=== PATIENT | female | born 1990 | race Caucasian/White ===

== ENCOUNTER 2021-05-29 11:00 | Outpatient (CLI) | payer BC ==
[2021-05-29 14:43] VITALS: BMI 34.1
== END 2021-05-29 11:01 | disposition home or self-care (01) ==
LOC: PET 11:00
PROVIDERS: ATTEND Internal Medicine Hematology & Oncology
DX: C83.83 Other non-follicular lymphoma, intra-abdominal lymph nodes (principal)
CPT/HCPCS: 78815; 80053; 82248; 83615; 84100; 84550; A9552

== ENCOUNTER → 2021-06-01 | Day surgery (SDC) | payer BC ==
[2021-05-30 14:56] VITALS: BMI 32.4
[~2021-06-01] MED LIST: Iopamidol 370 76% 100 ML VIAL ONE
[2021-06-01 09:10] LABS: INR-International Normal Ratio 1.3
[2021-06-01 09:11] LABS: PTT 47.8 sec (22.9-36.1)
[2021-06-01 09:20] LABS: BHCG - Serum Negative (NEGATIVE); Pregs Control Background? CLEAR/WHITE (CLR/WHITE); Pregs Control Bar Appear? YES (CONTROL BAR)
[2021-06-01 09:27] VITALS: BP 114/82; TEMP 97.9
== END ==
LOC: CT 08:44
PROVIDERS: ATTEND Internal Medicine Hematology & Oncology
PROC: 079T3ZX Drainage of Bone Marrow, Percutaneous Approach, Diagnostic (ICD-10-PCS; principal; 2021-06-01)
PROC: 07DR3ZX Extraction of Iliac Bone Marrow, Percutaneous Approach, Diagnostic (ICD-10-PCS; principal; 2021-06-01)
PROC: 07BD3ZX Excision of Aortic Lymphatic, Percutaneous Approach, Diagnostic (ICD-10-PCS; principal; 2021-06-01)
DX: C81.93 Hodgkin lymphoma, unspecified, intra-abdominal lymph nodes (principal); E66.9 Obesity, unspecified; Z68.32 Body mass index [BMI] 32.0-32.9, adult; Z86.16 Personal history of COVID-19; Z87.891 Personal history of nicotine dependence
CPT/HCPCS: 20225; 74160; 77012; 84703; 85097; 85610; 85730; 88184; 88237; 88305; 88307; 88311; 88313; 88333; 88341; 88342; J2250; J2405; J3010; Q9967

== ENCOUNTER 2021-06-08 06:00 | Day surgery (SDC) | payer BC ==
[2021-06-05 10:43] VITALS: BMI 32.5
[~2021-06-08 06:00] MED LIST changes: +Fentanyl 100 MCG/2 ML VIAL ONE; -Iopamidol 370 76% 100 ML VIAL ONE; +Midazolam HCl 2 mg/2 ml Vial ONE; +Ondansetron PF 4 MG/2 ML Vial ONE; +Sodium Bicarbonate 2.5 MEQ/5 ML VIAL ONE; +Sodium Chloride 0.9% 10 ML ONE
[2021-06-08] MEDS ORDERED: Acetaminophen 500 MG TAB ONE (06:21)
[2021-06-08] MEDS ORDERED: Ketorolac Tromethamine 30 MG/ML VIAL ONE (06:21)
[2021-06-08] MEDS ORDERED: Bupivacaine 0.25% HCL 30 ML VIAL ONE (06:58)
[2021-06-08] MEDS ORDERED: Xylocaine 1% w/ Epi 1:100K 10 ML VIAL ONE (06:58)
[2021-06-08] MEDS ORDERED: Midazolam HCl 2 mg/2 ml Vial ONE ×2 (07:23→07:45)
[2021-06-08] MEDS ORDERED: Fentanyl 250 MCG/5 ML VIAL ONE (07:23)
[2021-06-08 07:32] LABS: BHCG - Serum Negative (NEGATIVE); Pregs Control Background? CLEAR/WHITE (CLR/WHITE); Pregs Control Bar Appear? YES (CONTROL BAR)
[2021-06-08] MEDS ORDERED: Scopolamine 1.5 mg/72 hour Patch ONE (07:45)
[2021-06-08] MEDS ORDERED: Famotidine/PF 20 mg/2ml Vial ONE (07:45)
[2021-06-08 07:46] LABS: #Eosinphils 0.2 thou/uL (0.0-0.7); #Monocytes 0.7 thou/uL (0.11-0.59); #Neutrophils 14.2 thou/uL (1.40-6.50); %Basophils 0.1 % (0.0-1.0); %Eosinophils 1.1 % (0.0-10.0); %Lymphocytes 11.9 % (21.0-51.0); %Monocytes 4.3 % (0.0-10.0); %Neutrophils 82.6 % (42.0-75.0); Anion Gap 16 mmol/L (10-20); BUN (Urea Nitrogen) 11 mg/dL (7.0-18.7); Calc. Creatinine Clearance 177 mL/min (70-130); Calcium 8.7 mg/dL (7.8-10.44); Carbon Dioxide 24 mmol/L (22-29); Chloride 101 mmol/L (98-107); Glucose 156 mg/dL (70-105); Hemoglobin 10.8 g/dL (12.0-16.0); Mean Corpuscular HGB CONC 30.2 g/dL (32.0-36.0); Mean Corpuscular Hemoglobin 24.7 pg (27.0-31.0); Platelet Count 442 thou/uL (130-400); RBC Distribution Width 18.2 % (11.5-14.5); Red Blood Cell (RBC) Count 4.38 mill/uL (4.20-5.40); Sodium 137 mmol/L (136-145); White Blood Cell (WBC) Count 17.2 thou/uL (4.8-10.8)
[2021-06-08] MEDS ORDERED: ceFAZolin 2 GM/DEX 5% 100 ML BAG ONE (07:49)
[2021-06-08] MEDS ORDERED: Dexmedetomidine 200 MCG/2 ML VIAL ONE (07:50)
[2021-06-08] MEDS ORDERED: Ondansetron PF 4 MG/2 ML Vial ONE (08:05)
[2021-06-08] MEDS ORDERED: Lidocaine 1% PF 5 ML VIAL ONE (08:05)
[2021-06-08] MEDS ORDERED: PROPOFOL 200 MG/20 ML VIAL ONE (08:05)
[2021-06-08] MEDS ORDERED: Dexamethasone 20 MG/5 ML VIAL ONE (08:05)
== END 2021-06-08 11:07 | disposition home or self-care (01) ==
LOC: SDC 06:00
PROVIDERS: ATTEND Surgery
PROC: 0JH60WZ Insertion of Totally Implantable Vascular Access Device into Chest Subcutaneous Tissue and Fascia, Open Approach (ICD-10-PCS; principal; 2021-06-08)
PROC: 07B63ZX Excision of Left Axillary Lymphatic, Percutaneous Approach, Diagnostic (ICD-10-PCS; principal; 2021-06-08)
PROC: 02HV33Z Insertion of Infusion Device into Superior Vena Cava, Percutaneous Approach (ICD-10-PCS; principal; 2021-06-08)
DX: C81.94 Hodgkin lymphoma, unspecified, lymph nodes of axilla and upper limb (principal); Z86.16 Personal history of COVID-19; Z87.891 Personal history of nicotine dependence; Z79.899 Other long term (current) drug therapy
CPT/HCPCS: 36415; 71045; 80048; 84703; 85025; 88184; 88307; 88333; C1788; J1100; J1642; J1885; J2250; J2405; J2704; J3010; S0020; S0028

== ENCOUNTER 2021-11-07 11:00 | Outpatient (CLI) | payer BC | END 2021-11-07 11:01 | disposition home or self-care (01) | LOC: PET 11:00 | PROVIDERS: ATTEND Internal Medicine Hematology & Oncology | DX: C81.11 Nodular sclerosis Hodgkin lymphoma, lymph nodes of head, face, and neck (principal); R91.1 Solitary pulmonary nodule | CPT/HCPCS: 78815; A9552 ==

== ENCOUNTER 2022-01-24 12:30 | Outpatient (CLI) | payer BC | END 2022-01-24 12:31 | disposition home or self-care (01) | LOC: PET 12:30 | PROVIDERS: ATTEND Internal Medicine Hematology & Oncology | DX: C81.11 Nodular sclerosis Hodgkin lymphoma, lymph nodes of head, face, and neck (principal) | CPT/HCPCS: 78815; A9552 ==

== ENCOUNTER 2022-09-03 11:45 | Outpatient (CLI) | payer BC | END 2022-09-03 11:46 | disposition home or self-care (01) | LOC: PET 11:45 | PROVIDERS: ATTEND Internal Medicine Hematology & Oncology | DX: C81.11 Nodular sclerosis Hodgkin lymphoma, lymph nodes of head, face, and neck (principal) | CPT/HCPCS: 78815; A9552 ==